=== PATIENT | female | born 2000 | race Caucasian/White ===

== ENCOUNTER 2022-12-21 06:10 | Day surgery (SDC) | payer OTHER ==
[~2022-12-21] VITALS: Ht 160 cm; Wt 117.0 kg
[~2022-12-21 06:10] MED LIST: ALLERGY MEDICAT25 MG PO; ANTACID300 MG PO; ANTI-DIARRHEAL2 MG PO; BISACODYL5 MG PO; CEFPODOXIME PR200 MG PO; FLUTICASONE PRO16 GM NAS; IBUPROFEN200 M1 PO; MELATONIN3 MG PO; ONDANSETRON HCL4 MG PO; PROZAC20 MG PO; VENTOLIN HFA18 GM INH
--- NOTE | 2022-12-21 07:05 | NUR ---
NURSING STAFF IN ROOM. DID NOT INTERRUPT. PRAYED SILENTLY FOR SUCCESSFUL PROCEDURE AND ABIDING PEACE.
[2022-12-21 07:07] VITALS: BP 142/77
[2022-12-21 08:00] LABS: BASOPHILS 0.4 % (0-2); HEMATOCRIT 37.7 % (35.0-50.0); HEMOGLOBIN 12.5 g/dL (12.0-18.0); LYMPHOCYTES 30.7 % (24-44); MCH 27.9 (27-36); MCHC 33.2 g/dl (30-36); MCV 84.2 fl (81-99); MONOCYTES 6.6 % (0-12); NEUTROPHILS 61.3 % (39-80); PLATELET COUNT 310 K/uL (140-440); RBC 4.48 M/ul (4.3-5.7)
--- NOTE | 2022-12-21 09:02 | NUR ---
12/21/22 0902 Rosalia Farrell 0856 PT TO PACU SLEEPING O2 VIA MASK, FOGGING NOTED IN MASK.
[2022-12-21 09:33] VITALS: BP 108/63
--- NOTE | 2022-12-23 15:29 | PATH ---
[facility] [address] [place], [place] [address] Signed SPECIMEN(S): A PRODUCTS OF CONCEPTION SPECIMEN SOURCE: A. PRODUCTS OF CONCEPTION CLINICAL HISTORY: Missed FINAL PATHOLOGIC DIAGNOSIS: Products of conception: - Immature chorionic villi consistent with clinical missed . JVR:llc MICROSCOPIC EXAMINATION: Histologic sections of all submitted blocks are examined by light microscopy. These findings, together with the gross examination, support the pathologic diagnosis. GROSS DESCRIPTION: The specimen, labeled and designated "Abhishek, A" and designated on the requisition "products of conception," is received in formalin and consists of a portion of pink-arredondo to red brown soft and flocculent tissue (6.0 x 6.0 x 2.0 cm in aggregate). No parts are grossly identified. Liquor Bridge Operator sections are submitted in cassette A1. AC (under the direct supervision of a pathologist) The Gross Description was prepared using a voice recognition system. The report was reviewed for accuracy; however, sound-alike word errors, addition and/or deletions may occur. If there is any question about this report, please contact Client Services. PERFORMING LABORATORY: Technical component was performed by [facility], [address] [place] [id number] (CLIA# [id number]). Professional interpretation was performed by [email or web address], [address] [place] [id number] (CLIA#: [id number]). Diagnostician: Bentley Flores MD Pathologist Electronically Signed 12/23/2022 PATIENT NAME: ROLAND SERRANO PATHOLOGY DATE OF : [birth year] REPORT #: [id number] PHYSICIAN: [facility] PCP: MATTHEW CLINTON MD REPORT IS CONFIDENTIAL AND NOT TO BE RELEASED WITHOUT AUTHORIZATION [address] [place], [place] [address] Signed Copies: ~ PATIENT NAME: ROLAND SERRANO PATHOLOGY DATE OF : [birth year] REPORT #: [id number] PHYSICIAN: [facility] PCP: MATTHEW CLINTON MD REPORT IS CONFIDENTIAL AND NOT TO BE RELEASED WITHOUT AUTHORIZATION
--- NOTE | 2022-12-26 20:18 | OR ---
[facility] [address] [place], [place] [address] Signed DATE OF OPERATION: 12/21/2022 SURGEON: Heather Anthony MD PREOPERATIVE DIAGNOSIS: Missed . POSTOPERATIVE DIAGNOSIS: Missed . PROCEDURE: Suction D and C. ANESTHESIA: MAC. ESTIMATED BLOOD LOSS: 100 mL. DRAINS: None. INDICATIONS AND FINDINGS: The patient is a 22-year-old female 1, para 0, who was diagnosed with a missed AB last week. She started spotting on Monday. After discussion of her options, she wished to proceed with D and C. The demise occurred at 10 weeks and 4 days. At the time of surgery, exam under anesthesia revealed an enlarged uterus of approximately 12 week size. The cervix was closed. There was large amount of tissue within the uterus. DESCRIPTION OF PROCEDURE: The patient was prepped and draped in the dorsal lithotomy position. An open-sided speculum was placed. The anterior lip of the cervix was visualized and grasped with a single-tooth tenaculum. The endocervical canal was then dilated to a #10 dilator. A #10 curved suction curette was then introduced with removal of a large amount of tissue. Following this, stone forceps were introduced and additional placental type tissue was removed with this. This was followed by repeat suction and curettage. Following this, sharp curettage was alternated with suction curettage to be sure that the cavity was completely clean. The cavity began to contract and bleeding lessened significantly. The procedure was terminated when the cavity did feel clean. She also received IV Electronically Signed By: HEATHER ANTHONY MD 12/26/222017 PATIENT NAME: ROLAND SERRANO OPERATIVE REPORT DATE OF : 02 REPORT #: [id number] PHYSICIAN: HEATHER ANTHONY MD PCP: MATTHEW CLINTON MD REPORT IS CONFIDENTIAL AND NOT TO BE RELEASED WITHOUT AUTHORIZATION [facility] [address] [place] [id number] Signed Pitocin as well as IM Methergine during the case. The tenaculum was removed from the cervix. There was no evidence of any ongoing bleeding. The procedure was terminated. The patient was taken to the recovery room in good condition. All sponge and needle counts were correct. Heather Anthony MD PJW/MODL /[id number] Copies: ~ Electronically Signed By: HEATHER ANTHONY MD 12/26/222017 PATIENT NAME: ROLAND SERRANO OPERATIVE REPORT DATE OF : 02 REPORT #: [id number] PHYSICIAN: HEATHER ANTHONY MD PCP: MATTHEW CLINTON MD REPORT IS CONFIDENTIAL AND NOT TO BE RELEASED WITHOUT AUTHORIZATION
== END 2022-12-21 09:42 | disposition home or self-care (01) ==
LOC: OPS 06:10 → DS 06:10 → OPS 09:00
PROVIDERS: ATTEND Obstetrics & Gynecology
PROC: 10D17ZZ Extraction of Products of Conception, Retained, Via Natural or Artificial Opening (ICD-10-PCS; principal; 2022-12-21 09:00)
DX: O02.1 Missed abortion (principal)
CPT/HCPCS: 01965; 36415; 85025; 88305; J0690; J1885; J2001; J2210; J2250; J2405; J2704; J2765; J3010; J3490; J7121

== ENCOUNTER 2023-09-16 23:02 | Emergency (ER) | payer OTHER ==
[~2023-09-16] VITALS: Ht 160 cm; Wt 109.0 kg
[2023-09-16 23:43] LABS: BILIRUBIN, URINE NEGATIVE (negative); BLOOD/HGB, URINE TRACE-I (Negative); KETONE, URINE NEGATIVE (Negative); LEUK ESTERASE, URINE NEGATIVE (negative); NITRITE, URINE NEGATIVE (negative)
[2023-09-16 23:52] LABS: CRYSTALS, URINE CALCIUM OXALATE 1+ (0-1+); EPITHELIAL CELLS, URINE SQUAMOUS 1+ /lpf (0-1+)
[2023-09-16 23:53] LABS: BACTERIA, URINE 1+ /hpf (negative); CASTS, URINE NONE SEEN \\lpf; COLLECTION TYPE, URINE CLEAN CATCH; REFLEX CULTURE, URINE No (No)
[2023-09-16 23:55] LABS: AMPHETAMINES, URINE NEGATIVE (NEGATIVE); BARBITURATES, URINE NEGATIVE (NEGATIVE); BENZODIAZEPINE, URINE NEGATIVE (NEGATIVE); BUPRENORPHINE, URINE NEGATIVE (NEGATIVE); CANNABINOID, URINE NEGATIVE (NEGATIVE); COCAINE, URINE NEGATIVE (NEGATIVE); ECSTASY, URINE NEGATIVE (NEGATIVE); FENTANYL, URINE NEGATIVE (NEGATIVE); METHADONE, URINE NEGATIVE (NEGATIVE); OPIATES, URINE NEGATIVE (NEGATIVE); OXYCODONE, URINE NEGATIVE (NEGATIVE); PHENCYCLIDINE, URINE NEGATIVE (NEGATIVE)
[2023-09-17 00:05] LABS: BASOPHILS 0.9 % (0-2); EOSINOPHILS 4.5 % (0-6); HEMOGLOBIN 12.8 g/dL (12.0-18.0); LYMPHOCYTES 26.9 % (24-44); MCH 27.9 (27-36); MCHC 33.8 g/dl (30-36); MCV 82.5 fl (81-99); MONOCYTES 5.7 % (0-12); PLATELET COUNT 349 K/uL (140-440); RBC 4.61 M/ul (4.3-5.7); RDW 13.6 (10.5-15.0)
[2023-09-17] MEDS ORDERED: NORELGESTROM-E1 EACH TD (00:19)
[2023-09-17] MEDS ORDERED: HYDROXYZINE HCL50 MG PO (00:19)
[2023-09-17 00:24] LABS: ACETAMINOPHEN 0 ug/mL (10-30); ALBUMIN 3.7 g/dL (3.4-5.0); ALBUMIN/GLOBULIN RATIO 0.97 (1.1-2.4); ALCOHOL, MEDICAL <3 ng/dL (<3); ALKALINE PHOSPHATASE 141 U/L (46-116); ALT (SGPT) 39 U/L (14-59); ANION GAP 12.7 (7-21); AST (SGOT) 20 U/L (15-37); BILIRUBIN, TOTAL 0.2 ng/dL (0.2-1.0); BUN/CREATININE RATIO 12.24 (6.0-28.6); CALCIUM 9.5 mg/dL (8.5-10.1); CARBON DIOXIDE 28 mmol/L (21-32); CHLORIDE 104 mmol/L (98-107); CREATININE, SERUM 0.98 mg/dL (0.55-1.02); GLOMERULAR FILTRATION RATE,EST 85 mL/min (>60); POTASSIUM 3.7 mmol/L (3.5-5.1); PROTEIN, TOTAL 7.5 g/dL (6.4-8.2); SALICYLATE 1.5 mg/dL (2.8-20.0); UREA NITROGEN 12 mg/dL (7-18)
[2023-09-17 02:50] VITALS: BP 154/107
== END 2023-09-17 02:50 | disposition home or self-care (01) ==
LOC: ED 23:02
PROVIDERS: Internal Medicine
DX: F43.10 Post-traumatic stress disorder, unspecified (principal); X58.XXXA Exposure to other specified factors, initial encounter; Z91.09 Other allergy status, other than to drugs and biological substances; Z79.899 Other long term (current) drug therapy
CPT/HCPCS: 36415; 80053; 80307; 81001; 84443; 84703; 85025; 99284; G0480